=== PATIENT | male | born 1970 | race Caucasian/White ===

== ENCOUNTER 2018-12-21 19:22 | Emergency (ER) | payer BC ==
[~2018-12-21] VITALS: Ht 165.1 cm; Wt 68.0 kg
[~2018-12-21 19:22] MED LIST: CIPROFLOXACIN500 M1 PO; CYCLOBENZAPRINE5 MG PO; IBUPROFEN 800800 M1 PO; NORCO 5-325 TA1 EACH PO; OSELB75 PO; PREDNISONE50 MG PO; PRINIVIL20 MG; TRAMADOL 50 MG50 MG PO; ULTRAM 50MG TAB50 MG PO; ZOFRAN4 MG PO
[2018-12-21] MEDS ORDERED: KEFLEX500 M1 PO (20:22)
[2018-12-21] MEDS ORDERED: ACETAMINOPHEN-1 EAC1 PO (20:22)
[2018-12-21 21:13] VITALS: BP 106/74
== END 2018-12-21 21:13 | disposition home or self-care (01) ==
LOC: M.ERS 19:22
DX: S61.213A Laceration without foreign body of left middle finger without damage to nail, initial encounter (principal); I10 Essential (primary) hypertension; W26.8XXA Contact with other sharp object(s), not elsewhere classified, initial encounter; Y93.89 Activity, other specified; Y92.89 Other specified places as the place of occurrence of the external cause; Y99.8 Other external cause status

== ENCOUNTER 2019-01-30 02:15 | Inpatient (IN) | payer BC ==
[~2019-01-30] VITALS: Ht 165.1 cm; Wt 68.0 kg
--- NOTE | ~2019-01-30 | CON ---
[address] [address] CONSULTATION Name: LIDIA CARL Room: [address] IN M.R.#: [id number] Admission: 01/30/19 Attend Phys: Jamel Mccoy MD Discharge: Date of : 66 Report #: [id number] THIS REPORT FOR: //name// CC: Sean Mccoy DATE OF SERVICE: 01/30/2019 HISTORY OF PRESENT ILLNESS: This is a 48-year-old male, who presents with anemia and lower gastrointestinal bleed. The patient apparently underwent colonoscopy by Dr. Caputo, my partner, and had a polyp removed from his cecum. This polyp was 15 mm in size. The patient then went home and started having bloody stools. He denied any abdominal pain, but reports some abdominal cramping when he has to use the washroom. He denies any nausea, vomiting or dyspepsia. His hemoglobin dropped from 13.5 to 11.7 in the Emergency Room. PAST MEDICAL HISTORY: Significant for history of gallstones, hypertension, and laceration of the finger. ALLERGIES: No known drug allergy. MEDICATIONS: Please refer to MAR. SOCIAL HISTORY: The patient is and lives at home. He has just undergone a colonoscopy with polypectomy. Denies tobacco or alcohol use. FAMILY HISTORY: Negative for GI malignancy. PHYSICAL EXAMINATION: VITAL SIGNS: Reveals normal vitals. LUNGS: Clear. CARDIOVASCULAR: Regular. ABDOMEN: Soft, nontender, nondistended. Bowel sounds are positive. IMPRESSION AND PLAN: The patient is with post-polypectomy bleed, whose hemoglobin has dropped from 13.5 to 11.7. We will prep him and perform a colonoscopy and cauterized his polypectomy site and possibly put clips if needed. The patient is agreeable with plan. By: [id number] Begum MD /nt
[~2019-01-30 02:15] MED LIST changes: +ACETAMINOPHEN-1 EAC1 PO; +KEFLEX500 M1 PO; +LISINOPRIL-HCT1 EACH PO; -PRINIVIL20 MG
[2019-01-30 02:24] VITALS: BP 98/71
[2019-01-30 02:45] LABS: ABSOLUTE BASOPHILS 0.1 thou/uL (0.0-0.2); ABSOLUTE EOSINOPHILS 0.1 thou/uL (0.0-0.7); ABSOLUTE LYMPHOCYTES 2.5 thou/uL (0.8-5.3); ABSOLUTE MONOCYTES 1.2 thou/uL (0.0-1.2); ABSOLUTE NEUTROPHILS 9.6 thou/uL (1.6-8.1); EOSINOPHILS 0.7 %; HEMATOCRIT 39.7 % (42.0-52.0); HEMOGLOBIN 13.5 gm/dL (14.0-18.0); LYMPHOCYTES 18.4 %; MCH 30.2 pg (26.0-34.0); MCHC 33.9 g/dL (28.0-37.0); MCV 88.9 fL (80.0-100.0); MONOCYTES 8.8 %; MPV 7.7 fl. (7.2-11.1); NUCLEATED RBCS 0 /100WBC; PLATELET COUNT* 496 thou/uL (150-400); POLYS 71.1 %; RBC 4.47 mil/uL (4.50-6.00); RDW-CV 13.2 % (10.5-14.5); WBC 13.4 thou/uL (4.0-11.0)
[2019-01-30 02:49] LABS: CALCIUM 8.7 mg/dL (8.5-10.1); CREATININE 1.4 mg/dL (0.6-1.3); POTASSIUM 4.1 mmol/L (3.5-5.1)
[2019-01-30 02:54] LABS: ALBUMIN 3.2 g/dL (3.4-5.0); TOTAL BILIRUBIN 0.3 mg/dL (<0.1-1.0); TOTAL PROTEIN 6.4 g/dL (6.4-8.2)
[2019-01-30 08:05] VITALS: BP 103/74
--- NOTE | 2019-01-30 09:25 | NUR ---
AT 0800 EXPLAINED POC WITH PT ON ADMISSION STATUS AND PROCESS THAT WILL BE TAKING PLACE; THAT GI HAS BEEN CONSULTED AND CALLED. PT STATES CONCERNED WHEN THE GI SPECIALIST WILL BE IN TO SEE HIM AND I STATE THEY HAVE BEEN NOTIFIED AND WILL BE COMING IN TO SEE HIM TODAY AND WE DO NOT KNOW THE TIME FRAME AT THIS TIME, BUT SPECIALIST WILL EITHER TALK WITH HIM IN THE ER IF HE IS STILL DOWN HERE OR IN HIS ROOM WHEN HE GETS MOVED, PT VERBALIZED UNDERSTANDING AT THIS TIME. I STATED THE PROCESS OF ADMISSION BED STATUS THAT WE ARE WAITING FOR A ROOM ASSIGNMENT AND DISCHARGES, SOON I FIND OUT WHAT THE ROOM STATUS HE WILL BE NOTIFIED PROMPTLY. PT STATES HE DOESNT UNDERSTAND WHY HE HAS TO WAIT WHY HE HAS TO BE MOVED. I STATED ITS DUE TO HOSPITAL VOLUME AND WAITING ON PENDING DISCHARGES PUT WE WILL GET HIM TRANSFERRED SOON, BUT WE WILL MAKE HIM COMFORTABLE IN THE ER, MONITORING HIM CLOSELY AND IF HE NEEDS ANYTHING AT ALL TO PLEASE LET US KNOW. CALL LIGHT IS WITHIN REACH AND SPOUSE AT SIDE AND PT VERBALIZES UNDERSTANDING. PT DEMANDS ICE CHIPS AT THIS TIME AND STATED HE CAN NOT HAVE ANYTHING AT THIS TIME DUE TO UNKNOWN ANTICIPATED PROCEDURES BY GI SPECIALIST AND ORDERED BY PHYSICIAN NOT TO HAVE ANYTHING BY MOUTH, BUT HE IS BEING HYDRATED BY IV FLUIDS AT THIS TIME AND PT VERBALIZES UNDERSTANDING. CONTINUE TO MONITOR PT
--- NOTE | 2019-01-30 09:34 | NUR ---
DR BARKLEY AT BEDSIDE DISCUSSING POC WITH PT AT THIS TIME
--- NOTE | 2019-01-30 09:52 | NUR ---
PATIENT AND SPOUSE STATE TO DR BARKLEY THEY ARE UNHAPPY ABOUT ABOUT THE ADMISSION PROCESS AND GI SPECIALIST NOT BEING CONSULTED UNTIL 7 AM AND WANT THE REAL ESTATE ACCOUNTANT CONTACTED. CALLED ABRAM, REAL ESTATE ACCOUNTANT TO SPEAK WITH FAMILY
--- NOTE | 2019-01-30 10:19 | NUR ---
EMELY RAMÍREZ, [employer] PREPARER AT BEDSIDE TALKING WITH FAMILY ABOUT THEIR CONCERNS AT THIS TIME
--- NOTE | 2019-01-30 10:20 | NUR ---
AT 1000, PT PLACED ON HOSPITAL BED IN ER FOR COMFORT
[2019-01-30 11:50] VITALS: BP 102/64
[2019-01-30 12:09] VITALS: BP 108/68
[2019-01-30 15:00] VITALS: BP 114/71
[2019-01-30 16:02] LABS: ABSOLUTE BASOPHILS 0.1 thou/uL (0.0-0.2); ABSOLUTE EOSINOPHILS 0.1 thou/uL (0.0-0.7); ABSOLUTE LYMPHOCYTES 2.1 thou/uL (0.8-5.3); ABSOLUTE NEUTROPHILS 6.6 thou/uL (1.6-8.1); HEMATOCRIT 32.2 % (42.0-52.0); HEMOGLOBIN 11.1 gm/dL (14.0-18.0); LYMPHOCYTES 21.4 %; MCH 30.9 pg (26.0-34.0); MCHC 34.5 g/dL (28.0-37.0); MCV 89.6 fL (80.0-100.0); MONOCYTES 9.9 %; MPV 7.3 fl. (7.2-11.1); NUCLEATED RBCS 0 /100WBC; POLYS 66.7 %; RBC 3.59 mil/uL (4.50-6.00); RDW-CV 13.3 % (10.5-14.5); WBC 9.9 thou/uL (4.0-11.0)
[2019-01-30 16:03] LABS: PLATELET COUNT* 341 thou/uL (150-400)
--- NOTE | 2019-01-30 17:21 | NUR ---
PT A&OX4 VSS. PT ON CLEAR LIQUIDS UNTIL MIDNIGHT, THEN NPO TO PREPARE FOR COLONOSCOPY IN THE AM. 1ST DOSE DULCOLAX ADMIN 1600, REMAINDER TO BE GIVEN AT 2000, PT AWARE AND COOPERATIVE. PT UP AD GUERDA, AMB TO RESTROOM GAIT STEADY. IV TO RAC PATENT, NS RUNNING AT 100ML/HR. PT RESTS IN BED WITH CALL LIGHT IN REACH. NO COMPLAINTS/CONCERNS AT THIS TIME.
[2019-01-30 20:04] VITALS: BP 102/69
--- NOTE | 2019-01-31 06:36 | NUR ---
REFUSED MORNING LABS UNTIL HE SEES THIS MORNING. REPORTS NO MORE BLOOD IN STOOL. HAD SEVERAL LOOSE STOOLS DURING THE NIGHT. HE IS ANXIOUS TO LEAVE TODAY
[2019-01-31 07:48] VITALS: BP 114/73
[2019-01-31 16:00] VITALS: BP 105/61
--- NOTE | 2019-01-31 17:31 | NUR ---
PT REMAINED ALERT AND ORIENTED. PT HAD COLONOSCOPY TODAY. PT RESTING IN BED. FALL RISK PRECAUTIONS IN PLACE. HOURLY ROUNDING COMPLETED. WILL CONTINUE TO MONITOR.
[2019-01-31 19:32] VITALS: BP 105/61
[2019-01-31 19:35] VITALS: BP 105/61
== END 2019-01-31 19:53 | disposition home or self-care (01) | DRG 920 ==
LOC: M.ERS 02:15 → M.TBA-ER 03:55 → M.3W 12:33
PROVIDERS: Emergency Medicine; Internal Medicine; ADMIT Internal Medicine
PROC: 0W3P8ZZ Control Bleeding in Gastrointestinal Tract, Via Natural or Artificial Opening Endoscopic (ICD-10-PCS; principal; 2019-01-31)
DX: K91.840 Postprocedural hemorrhage of a digestive system organ or structure following a digestive system procedure (principal); K92.1 Melena; D62 Acute posthemorrhagic anemia; K63.3 Ulcer of intestine; I10 Essential (primary) hypertension; E86.1 Hypovolemia; Y83.8 Other surgical procedures as the cause of abnormal reaction of the patient, or of later complication, without mention of misadventure at the time of the procedure; F17.210 Nicotine dependence, cigarettes, uncomplicated; K64.8 Other hemorrhoids; Z79.899 Other long term (current) drug therapy; Y92.89 Other specified places as the place of occurrence of the external cause; Z90.49 Acquired absence of other specified parts of digestive tract